=== PATIENT | male | born 1985 | race Hispanic/Latino ===

== ENCOUNTER 2018-10-27 09:12 | Day surgery (SDC) | payer OTHER ==
[~2018-10-27 09:12] MED LIST: ANCEF/STERILE WATER 2 GM/20 ML IV NR
[2018-10-27] MEDS ORDERED: LACTATED RINGERS 1,000 ML IV SCH (10:00)
[2018-10-27] MEDS ORDERED: DILAUDID IV PRN (10:11)
--- NOTE | 2018-10-27 10:13 | Anesthesia Consultation ---
Anesthesia Consult and Med Hx Date of service: 10/27/18 - Airway Anesthetic Teeth Evaluation: Good ROM Head & Neck: Adequate Mental/Hyoid Distance: Adequate Mallampati Class: Class II Intubation Access Assessment: Probably Good (large hansen) - Pulmonary Exam CTA: Yes - Cardiac Exam Cardiac Exam: RRR - Pre-Operative Health Status ASA Pre-Surgery Classification: ASA2 Proposed Anesthetic Plan: General - Pulmonary Hx Smoking: Yes (quit cigs 5ys ago; vapes now) Hx Respiratory Symptoms: No Hx Sleep Apnea: No (JETT PRE SCREEN LOW RISK) - Cardiovascular System Hx Hypertension: No Hx Heart Attack/AMI: No - Central Nervous System CVA: No - Gastrointestinal Hx Gastroesophageal Reflux Disease: No - Endocrine Hx Renal Disease: No Hx Liver Disease: No Hx Insulin Dependent Diabetes: No Hx Non-Insulin Dependent Diabetes: No Hx Thyroid Disease: No - Other Systems Hx Obesity: Yes - Additional Comments Anesthesia Medical History Comments: No hx anesthetic complications.
--- NOTE | 2018-10-27 10:13 | Anesthesia Day of Surgery ---
Anesthesia Day of Surgery - Day of Surgery Patient Examined: Yes Patient H&P Reviewed: Yes Patient is NPO: Yes
[2018-10-27] MEDS ORDERED: XYLOCAINE MPF 2% ONE ×2 (10:30→10:32)
[2018-10-27] MEDS ORDERED: DIPRIVAN 10 MG/ML IV ONE (10:32)
[2018-10-27] MEDS ORDERED: SUBLIMAZE ONE (10:32)
[2018-10-27] MEDS ORDERED: KETAMINE 50 MG/ML-WATER SYRING ONE (10:35)
[2018-10-27] MEDS ORDERED: VERSED IV NR (11:00)
--- NOTE | 2018-10-27 11:53 | Short Stay Summary ---
Short Stay Documentation - History H&P: obtained from office - Allergies and Medications Current Medications: Allergies avocado Allergy (Verified 10/24/18 11:47) Swelling Home Medications Medication Instructions Recorded Confirmed Last Taken Type Ciprofloxacin HCl [Ciprofloxacin 500 mg PO Q12HR 10/24/18 10/24/18 10/26/18 13:00 History TAB] HYDROcodone/APAP 5-325 [[place] 1 each PO Q6HR PRN 10/24/18 10/24/18 10/26/18 13:00 History 5/325] Tamsulosin [Flomax] 0.4 mg PO QDAY 10/24/18 10/24/18 10/26/18 13:00 History traMADol [Ultram] 50 mg PO Q4HR PRN 10/24/18 10/24/18 10/26/18 13:00 History Active Medications Cefazolin Sodium (Ancef/Sterile Water 2 Gm/20 Ml) 2 gm IV PREOP NR Stop: 10/27/18 23:59 Hydromorphone HCl (Dilaudid) 0.5 mg IV Q10MIN PRN PRN Reason: Pain , Severe (7-10) Stop: 10/27/18 18:00 Lactated Ringer's (Lactated Ringers) 1,000 mls @ 100 mls/hr IV DIRECT YUAN Last Admin: 10/27/18 09:45 Dose: 100 mls/hr Documented by: Midazolam HCl (Versed) 2 mg IV PREOP NR Stop: 10/27/18 23:59 Last Admin: 10/27/18 10:51 Dose: 2 mg Documented by: - Brief post op/procedure progress note Date of procedure: 10/27/18 Pre-op diagnosis: left distal stone Post-op diagnosis: same Procedure: cysto, rpg, left ureteroscopy, basket stone, stent with external string Anesthesia: GETA Surgeon: JULIA VELOZ Condition: stable - Hospital course Hospital course: pt has pain meds & abx give pt stone post op info on chart - Disposition Condition at discharge: Stable Disposition: DC-01 TO HOME OR SELFCARE Short Stay Discharge Plan Follow up with: LIZABETH MCCAULEY MD [Primary Care Provider] - 7 Days
--- NOTE | 2018-10-27 12:51 | Post Anesthesia Evaluation ---
- Post Anesthesia Evaluation Patient Participated: Yes Airway Patent: Yes Stable Respiratory Function: Yes Nausea/Vomiting: No Temp > 96.8F: Yes Pain Manageable: Yes Adequeate Hydration: Yes Anesthesia Complications: No
--- NOTE | 2018-10-27 12:56 | Operative Report ---
PREOPERATIVE DIAGNOSIS: Left distal ureteral stone. POSTOPERATIVE DIAGNOSIS: Left distal ureteral stone. PROCEDURES: Cystoscopy, bilateral retrograde pyelograms, left ureteroscopy, basket stone extraction, double-J stent (6-Bel[place]ian 28 cm) with an external string. SURGEON: Bo Frey MD ANESTHESIA: General. ESTIMATED BLOOD LOSS: Minimal. FLUIDS: Crystalloid. COMPLICATIONS: No complications. INDICATIONS: This patient is a 33-year-old gentleman seen in the office with left flank pain. CT of abdomen and pelvis revealed a 6 mm distal stone. Discussed options. He wanted conservative therapy. He presented to the office again several weeks later with persistent pain requiring endoscopic evaluation. DESCRIPTION OF PROCEDURE: The patient was taken to the operative suite, placed in a supine position. After adequate general anesthesia, placed in a dorsal lithotomy position, prepped and draped in a sterile fashion. Pancystourethroscopy was performed with 22-Bel[place]ian Storz cystoscope, no urethral abnormalities. Prostate, nonobstructing. Bladder, no tumors or stones were noted. Bilateral retrograde pyelograms were obtained with an 8 [place]ian Wentworth catheter and 8 mL of contrast. No filling defects or obstruction on the right, distal ureter on the left was narrow prompting further evaluation. Two 0.035 Glidewires were placed. Rigid ureteroscopy was performed. Stone could be appreciated approximately 2 cm proximal to the ureteral orifice. A yellow stone was engaged with a 3-Bel[place]ian Radha basket, extracted without difficulty. Ureteroscopy to the renal pelvis, no other stones could be appreciated. A 6-[place]ian 28 cm double-J stent with an external string was left indwelling. Rectal exam was benign. Bladder was drained. He was extubated and taken to recovery room in stable condition. The patient already has his Bactrim, Ultram and [place]. We will give him the stone. JOB# [id number] [facility]
--- NOTE | 2018-10-27 14:10 | Fluoroscopy Report ---
FLUOROSCOPY RETROGRADE UROGRAPHY HISTORY: Left ureteral stone FINDINGS: 0.4 minutes of fluoroscopy time was provided by radiology during retrograde urography by the urologis t. 9 fluoroscopic images are presented. The right retrograde pyelogram is normal. A filling defect is identified in the distal left ureter consistent with a stone. Subsequent images d emonstrate left ureteroscopy and left ureteral stone extraction. A left ureteral stent was placed whi ch adequately drains the left collecting system on the final image. Please correlate with the procedural report as needed. IMPRESSION: Left ureteral stone removal. Left ureteral stent placement. Signer Name: Ilan Orozco Jr, MD Signed: 10/27/2018 2:06 PM Workstation Name: [id number]
[2018-10-27 18:03] VITALS: BP 122/62
== END 2018-10-27 09:13 | disposition home or self-care (01) ==
LOC: OR 09:12
PROVIDERS: ATTEND Urology
DX: N20.1 Calculus of ureter (principal); K21.9 Gastro-esophageal reflux disease without esophagitis; F32.9 Major depressive disorder, single episode, unspecified; F41.9 Anxiety disorder, unspecified; F17.210 Nicotine dependence, cigarettes, uncomplicated; E66.9 Obesity, unspecified; Z68.34 Body mass index [BMI] 34.0-34.9, adult; Z88.8 Allergy status to other drugs, medicaments and biological substances; Z79.899 Other long term (current) drug therapy; Z98.890 Other specified postprocedural states
CPT/HCPCS: 52332; 52352; 74420; C1758; C1769; C2617; J0690; J2250; J2704; J3010; J7120; Q9967